=== PATIENT | male | born 1945 | race Caucasian/White ===

== ENCOUNTER → 2016-07-08 | Outpatient (CLI) | payer OTHER ==
[~2016-07-08] MED LIST: REGADENOSON 0.4 MG/5 ML DISP.SYRIN. IV ONE
== END | disposition home or self-care (01) ==
LOC: PCVCIMAG 09:25
PROVIDERS: ATTEND Internal Medicine Cardiovascular Disease
DX: I25.10 Atherosclerotic heart disease of native coronary artery without angina pectoris (principal); E78.00 Pure hypercholesterolemia, unspecified; I48.91 Unspecified atrial fibrillation; I10 Essential (primary) hypertension; I08.1 Rheumatic disorders of both mitral and tricuspid valves
CPT/HCPCS: 78452; 93017; 93306; A9500; J2785

== ENCOUNTER → 2017-01-05 | Outpatient (CLI) | payer OTHER | END | disposition home or self-care (01) | LOC: PCVCCLINIC 10:34 | PROVIDERS: ATTEND Internal Medicine Cardiovascular Disease | DX: I45.10 Unspecified right bundle-branch block (principal); I48.91 Unspecified atrial fibrillation; I25.10 Atherosclerotic heart disease of native coronary artery without angina pectoris; E78.5 Hyperlipidemia, unspecified; I10 Essential (primary) hypertension; E11.8 Type 2 diabetes mellitus with unspecified complications; F17.210 Nicotine dependence, cigarettes, uncomplicated; Z79.84 Long term (current) use of oral hypoglycemic drugs; Z88.8 Allergy status to other drugs, medicaments and biological substances; Z79.899 Other long term (current) drug therapy | CPT/HCPCS: 80061; 93005; G0463 ==

== ENCOUNTER → 2017-09-16 | Outpatient (CLI) | payer OTHER | END | disposition home or self-care (01) | LOC: PCVCCLINIC 12:50 | DX: I49.5 Sick sinus syndrome (principal); I10 Essential (primary) hypertension; E78.5 Hyperlipidemia, unspecified; I48.1 Persistent atrial fibrillation; R94.31 Abnormal electrocardiogram [ECG] [EKG]; Z88.8 Allergy status to other drugs, medicaments and biological substances; Z79.84 Long term (current) use of oral hypoglycemic drugs; Z79.899 Other long term (current) drug therapy | CPT/HCPCS: 80061; 93005; G0463 ==

== ENCOUNTER → 2018-09-13 | Outpatient (CLI) | payer OTHER ==
--- NOTE | 2018-09-13 11:27 | PCVCIMAG ---
APPROVED REPORT Study performed: 09/13/2018 10:44:51 Exam: Stress Echocardiogram Indication: CAD s/p PCI, a fib, bradycardia, assess chronotropic response, dm Patient Location: Echo lab Stress Nurse: Katlyn Rene RN Status: routine Ht: 5 ft 11 in HR: 72 bpm BP: 140/70 mmHg Rhythm: Atrial Fibrillation Procedure The patient underwent an Exercise Stress Test using the Adonay Protocol. Blood pressure, heart rate, and EKG were monitored. An Echocardiogram was performed by chief technician in four stages in quad fashion. At peak stress, four selected images were obtained and placed side by side with resting images for comparison. Stress Test Details Stress Test: Exercise stress testing was performed using a Adonay protocol. HR Resting HR: 72 bpmMax Heart Rate (APMHR): 145 bpm Max HR Achieved: 122 bpmTarget HR (85% APMHR): 123 bpm % of APMHR: 84 Recovery HR: 75 bpm HR response to stress: Normal HR response to stress BP Resting BP: 140/70 mmHg Max BP: 162/80 mmHg Recovery BP: 124/68 mmHg BP response to stress: Normal blood pressure response to stress. ECG Resting ECG: Atrial Fibrillation Stress ECG: Atrial Fibrillation ST Change: Normal Arrhythmia: frequent PVCs with runs of bigeminy PVCs Recovery ECG: Atrial Fibrillation Recovery ST Change: Normal Recovery Arrhythmia: frequent PVCs Clinical Reason for Termination: Maximal effort, Dyspnea, leg fatigue Stress Symptoms: Dyspnea, Leg Fatigue Exercise duration: 6 min 58 sec Highest Stage Achieved: Stage 3: 3.4 mph at 14% grade. Exercise capacity: 9.9 METs Overall Exercise Capacity for Age: Normal Scale: Active Angina Score: None Pre-Stress Echo The resting Echocardiogram showed normal left ventricular contractility with an estimated Ejection Fraction of about >55%. Normal wall motion in all segments on baseline images. Post-Stress Echo The stress Echocardiogram showed normal left ventricular contractility with an estimated Ejection Fraction of about 65%. Normal augmentation of wall motion in all segments on post stress images. Clinical No clinical or ECG evidence for ischemia. Conclusion Clinical Response: Non-ischemic Exercise Capacity: Average Stress ECG Response: Non-ischemic Stress Echo Images: Non-ischemic The left ventricle is normal in size and mild-moderate LVH in both the rest and stress images. Inability of the patient to achieve 85% of maximal HR. Mild-moderate mitral regurgitation with mild tricuspid regurgitation and PAP of 33 mmHg. Other Information Study Quality: Adequate <Conclusion> The left ventricle is normal in size and mild-moderate LVH in both the rest and stress images. Inability of the patient to achieve 85% of maximal HR. Mild-moderate mitral regurgitation with mild tricuspid regurgitation and PAP of 33 mmHg.
== END | disposition home or self-care (01) ==
LOC: PCVCIMAG 10:38
PROVIDERS: ATTEND Internal Medicine Cardiovascular Disease
DX: I08.1 Rheumatic disorders of both mitral and tricuspid valves (principal); I25.10 Atherosclerotic heart disease of native coronary artery without angina pectoris; I49.5 Sick sinus syndrome; I48.0 Paroxysmal atrial fibrillation; I10 Essential (primary) hypertension; E78.5 Hyperlipidemia, unspecified
CPT/HCPCS: 93325; 93351